=== PATIENT | female | born 1940 | race Caucasian/White ===

== ENCOUNTER 2016-09-21 18:30 | Inpatient (IN) | payer OTHER, MEDICARE ==
[~2016-09-21] VITALS: Ht 167.6 cm; Wt 82.6 kg
--- NOTE | ~2016-09-21 | EKG ---
[address] [employer] [place] [address] ELECTROCARDIOGRAM REPORT Name: JAKE KENNEDYQUEENIE Baker Room #: 460-P ADM IN M.R.#: [id number] Admission: 09/21/16 Attend Phys: Gillian Sherman MD Discharge: Date of : 36 Report #: [id number] THIS REPORT FOR: //name// [facility] ED Test Date: 2016-09-21 Test Time: 18:39:04 Pat Name: KETTY KENNEDY Department: Room: [facility] Gender: F Dynamic Etching Processor: MZOOK : 1940 Requested By: Yves Buchanan Order Number: [id number] MD: Nayan Tapia Measurements Intervals [place] Rate: 67 P: 83 MT: 219 QRS: 46 QRSD: 94 T: 60 QT: 412 QTc: 435 Interpretive Statements Sinus rhythm Atrial premature complexes Borderline prolonged MT interval Minimal ST depression, anterolateral leads Compared to ECG 07/23/2016 13:53:13 Atrial premature complex(es) now present Electronically Signed On 09-22-2016 7:41:29 CDT by Nayan Tapia [email or web address] <ELECTRONICALLY SIGNED> By: Nayan Tapia MD, [facility] 09/22/16 0741 1839 1839 Nayan Tapia MD, [facility] /EPI
--- NOTE | ~2016-09-21 | H ---
[facility] [place] [address] HISTORY AND PHYSICAL Name: KENNEDYJAKEQUEENIE Baker Room #: 460-P [facility] IN ..#: [id number] Admission: 09/21/16 Attend Phys: Gillian Sherman MD Discharge: 09/22/16 Date of : 38 Report #: [id number] THIS REPORT FOR: //name// CC: DIANA Malloy ATTENDING PHYSICIAN: Dr. Malloy. PRIMARY CARE PHYSICIAN: Dr. Diana Bradshaw. CHIEF COMPLAINT: Near syncope. HISTORY OF PRESENT ILLNESS: The patient is a 76-year-old female who has been dealing with chronic left foot diabetic ulcer for many years. She says she was just at her finishing room operator office earlier in the day and had the foot wound debrided and she was prescribed Augmentin. She took one dose at home and then shortly thereafter felt suddenly nauseous. She was on her way to the bathroom and thought she was going to vomit when she suddenly got lightheaded and sweaty and thought she is going to pass out she leaned against the wall and was swayed down the wall onto the floor, but did not actually pass out. She did not hit her head or have any, cause any injury. She later on did have one loose stool, but she did not have any prior diarrhea. She was not having any diarrhea prior to that. She had recently been on antibiotics for pneumonia and had just finished ZPAK last week. As far her ulcer she was seeing Dr. Telles, her finishing room operator, was getting an outpatient evaluation done for this wound, she was supposed to be having an MRI of the foot as well as arterial Dopplers this week. She has not been having any fevers or chills. In the ER, she started having vomiting and wanted to have her gallbladder evaluated. She is now resting more comfortably. 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 PAST SURGICAL HISTORY: Tonsillectomy and hysterectomy. ALLERGIES: CAPTOPRIL, HYDROCHLOROTHIAZIDE, LEVAQUIN AND SHELLFISH. HOME MEDICATIONS: Simvastatin 20 mg at bedtime, Aggrenox 20/200 one tab b.i.d., amlodipine 2.5 mg daily, spironolactone 25 mg b.i.d., aspirin 81 mg daily, Neurontin 300 mg t.i.d., potassium 20 mEq at bedtime, benzonatate 200 mg t.i.d. p.r.n., metformin 500 mg b.i.d., 70/30 insulin 12 units b.i.d., levothyroxine 0.05 mg daily, Myrbetriq 50 mg daily, vitamin C 500 mg daily, Ocuvite daily, multivitamin daily, Combivent inhaler p.r.n. SOCIAL HISTORY: The patient has been smoking on and off since the age of 48. She currently smokes about 3-4 cigarettes per day. She denies any alcohol use. She normally ambulates with a walker. She is a . She currently lives with her daughter, son-in-law and granddaughter and great granddaughter. [address] [address] HISTORY AND PHYSICAL Name: KETTY KENNEDY Room #: 460-P [facility] IN M.R.#: [id number] Admission: 09/21/16 Attend Phys: Gillian Sherman MD Discharge: 09/22/16 Date of : 38 Report #: [id number] FAMILY HISTORY: Noncontributory. REVIEW OF SYSTEMS: Twelve point review of systems as reviewed with the patient, otherwise negative unless stated in the HPI. PHYSICAL EXAMINATION: GENERAL: The patient is an alert female in no acute distress. VITAL SIGNS: Temperature is 36.4, heart rate 77, respirations 18, blood pressure is 173/78, oxygen is 97% on room air. HEENT: PERRLA. Sclerae are nonicteric. Oral mucosa is pink and moist. NECK: Supple, no JVD noted. CARDIOVASCULAR: Normal S1, S2. No murmurs, rubs or gallops. RESPIRATORY: Breath sounds are clear bilaterally. No wheezing or rhonchi. Breathing is nonlabored. ABDOMEN: Soft, round, nontender, nondistended with positive bowel sounds. VASCULAR: She does not have any lower extremity edema. Pedal pulses are 2+ on the right and 1+ on the left. No calf tenderness. NEUROLOGIC: The patient is alert and oriented x 3. Speech is clear. She is answering questions appropriately and following commands. No focal neuro deficits noted other than decreased sensation in bilateral lower extremities, which is chronic for her. SKIN: She does have a wound on the plantar side of her left foot just at the base of great toe. There is a small wound that is currently packed and has wick. The wick was not removed. There s no purulent drainage from this. There is no fluctuance. There is no surrounding erythema or tenderness as she does have neuropathy. LABORATORY DATA AND DIAGNOSTICS: WBC is 9.3, hemoglobin 15.4, platelets 127. Sodium 131, potassium 3.9, BUN 12, creatinine 0.9, glucose 122. LFTs are within normal limits. Magnesium is 1.4. Troponins negative. Lactate is 1.4. Lipase is 153, ultrasound of the abdomen showed no gallstones or evidence for biliary obstruction seen and foot x-ray showed no fracture and no osteomyelitis and EKG showing sinus rhythm with some PACs. ASSESSMENT AND PLAN: 1. Near syncope. This is likely a vasovagal episode as she was having nausea and subsequently vomited, we will continue to monitor on telemetry for any arrhythmias and check orthostatics. 2. Nonhealing left diabetic foot wound. The patient is requesting her previously recommended workup that supposed to be done as outpatient be done while she is here. We will go ahead and order the foot MRI to rule out osteomyelitis and if there is osteomyelitis we will consult podiatry, although I do not think that her finishing room operator actually comes here, we will also check an arterial Dopplers as she does have decreased pulse in the left side. We will continue with [place] [id number] HISTORY AND PHYSICAL Name: KETTY KENNEDY Room #: 460-P [facility].#: [id number] Admission: 09/21/16 Attend Phys: Gillian Sherman MD Discharge: 09/22/16 Date of : 38 Report #: [id number] vancomycin. 3. Diabetes type 2. Blood sugar is stable. Resume 70/30 insulin as at home and add sliding scale insulin. Check blood sugars a.c. and at bedtime. 4. History of cerebrovascular accident. Continue with Aggrenox. 5. Hypomagnesemia. This has been replaced. Follow labs. 6. Deep venous thrombosis prophylaxis, place sequential compression devices. We will continue to follow the patient closely throughout the hospitalization and make changes based on clinical status. <ELECTRONICALLY SIGNED> By: PEPE Catherine 09/25/16 0638 0527 0608 PEPE Catherine /nt
[2016-09-21 18:30] VITALS: BP 173/78
[~2016-09-21 18:30] MED LIST: AGGRENOX 25 MG1 EACH PO; ANTIVERT25 MG PO; ASPIRIN EC325 M1 PO; ASPIRIN EC81 M1 PO; ASPIRIN325 PO; B-122500 MCG PO; CALCIUM; CALCIUM 600 +1 EAC1 PO; CLOPIDOGREL75 MG PO; COMBIVENT INH; ELEMENTAL CALC600 MG PO; GLUCOPHAGE500 MG PO; HUMULIN 70100 UNIT/2 SUBQ; K-DUR 20 MEQ T20 MEQ PO; LEVOTHROID50 MCG PO; LISINOPRIL5 MG PO; MULTIVITAMINS PO; NEURONTIN 300M300 M2 PO; NORVASC 5 MG TAB5 MG PO; OCUVITE TABLET1 EAC1 PO; SPIRONOLACTONE25 M1 PO; SYNTHROID50 MCG PO; TESSALON PERLE100 MG PO; VITAMIN B-12 PO; VITAMIN E400 UNIT PO; VITAMIN E600 UNIT PO; VITAMINC500 PO; VITAMINE B-1100 MG PO; ZANAFLEX4 MG PO; ZOCOR 20 MG TAB20 M1 PO
[2016-09-21 19:58] LABS: HEMATOCRIT 44.2 % (37.0-47.0); HEMOGLOBIN 15.4 gm/dL (12.0-15.0); MCH 32.7 pg (26.0-34.0); MCHC 34.9 g/dL (28.0-37.0); MCV 93.7 fL (80.0-100.0); PLATELET COUNT 127 thou/uL (150-400); RBC 4.72 mil/uL (4.20-5.00); RDW 13.3 % (10.5-14.5); WBC 9.3 thou/uL (4.0-11.0)
[2016-09-21 19:59] LABS: MANUAL DIFF YES
[2016-09-21 20:19] LABS: ANION GAP 10 mmol/L (7-16); BUN 12 mg/dL (7-18); CALCIUM 9.5 mg/dL (8.5-10.1); CHLORIDE 96 mmol/L (98-107); CO2 25 mmol/L (21-32); CREATININE 0.9 mg/dL (0.6-1.0); GLUCOSE 122 mg/dL (74-106); POTASSIUM 3.9 mmol/L (3.5-5.1); SODIUM 131 mmol/L (136-145)
[2016-09-21 20:21] LABS: TOTAL CELL COUNT 100
[2016-09-21 20:22] LABS: ABSOLUTE NEUTROPHILS 8.4 thou/uL (1.4-8.2)
[2016-09-21 20:26] LABS: ALBUMIN 3.6 g/dL (3.4-5.0); ALKALINE PHOSPHATASE 90 U/L (46-116); MAGNESIUM 1.4 mg/dL (1.8-2.4); SGOT 16 U/L (15-37); SGPT 16 U/L (30-65); TOTAL BILIRUBIN 0.9 mg/dL (<0.1-1.0); TOTAL PROTEIN 7.7 g/dL (6.4-8.2); TROPONIN-I < 0.04 ng/mL (<0.04-0.07)
[2016-09-21] MEDS ORDERED: NORVASC2.5 MG PO (20:35)
[2016-09-21] MEDS ORDERED: OCUVITE TABLET1 EAC1 PO (20:36)
[2016-09-21] MEDS ORDERED: MYRBETRIQ50 MG PO (20:37)
[2016-09-21] MEDS ORDERED: MYRBETRIQ25 MG PO (20:37)
[2016-09-21 22:59] VITALS: BP 166/58
[2016-09-22 08:00] VITALS: BP 141/57
[2016-09-22 15:05] VITALS: BP 141/57
== END 2016-09-22 16:00 | disposition home or self-care (01) | DRG 312 ==
LOC: ER 18:30 → 4W 21:27 → EROBS 21:27 → 4W 23:00
PROVIDERS: Emergency Medicine
DX: R55 Syncope and collapse (principal); L03.116 Cellulitis of left lower limb; E87.1 Hypo-osmolality and hyponatremia; E11.621 Type 2 diabetes mellitus with foot ulcer; L97.529 Non-pressure chronic ulcer of other part of left foot with unspecified severity; E83.42 Hypomagnesemia; E11.40 Type 2 diabetes mellitus with diabetic neuropathy, unspecified; Z86.73 Personal history of transient ischemic attack (TIA), and cerebral infarction without residual deficits; Z90.710 Acquired absence of both cervix and uterus; Z90.49 Acquired absence of other specified parts of digestive tract; Z88.8 Allergy status to other drugs, medicaments and biological substances; Z88.1 Allergy status to other antibiotic agents; Z91.013 Allergy to seafood; Z87.891 Personal history of nicotine dependence; Z79.4 Long term (current) use of insulin
CPT/HCPCS: 10040

== ENCOUNTER 2018-06-05 11:31 | Inpatient (IN) | payer OTHER, MEDICARE ==
[~2018-06-05] VITALS: Ht 167.6 cm; Wt 67.1 kg
[2018-06-05] VITALS (14 sets, daily range): BP systolic 115–141; BP diastolic 31–48
[~2018-06-05 11:31] MED LIST changes: +MYRBETRIQ25 MG PO; +MYRBETRIQ50 MG PO; +NORVASC2.5 MG PO
[2018-06-05 13:17] LABS: ABSOLUTE NEUTROPHILS 10.5 thou/uL (1.4-8.2); BASOPHILS 0.3 % (0.0-2.0); EOSINOPHILS 0.2 % (0.0-3.0); HEMATOCRIT 23.5 % (37.0-47.0); HEMOGLOBIN 8.1 gm/dL (12.0-15.0); LYMPHOCYTES 9.4 % (24.0-44.0); MCH 33.3 pg (26.0-34.0); MCHC 34.5 g/dL (28.0-37.0); MCV 96.4 fL (80.0-100.0); MONOCYTES 5.3 % (1.0-8.0); PLATELET COUNT 188 thou/uL (150-400); POLYS 84.8 % (36.0-66.0); RBC 2.44 mil/uL (4.20-5.00); RDW 12.6 % (10.5-14.5); WBC 12.4 thou/uL (4.0-11.0)
[2018-06-05 13:23] LABS: ANION GAP 5 mmol/L (7-16); BUN 50 mg/dL (7-18); CALCIUM 9.2 mg/dL (8.5-10.1); CHLORIDE 96 mmol/L (98-107); CO2 28 mmol/L (21-32); CREATININE 0.9 mg/dL (0.6-1.0); GLUCOSE 112 mg/dL (74-106); POTASSIUM 4.7 mmol/L (3.5-5.1); SODIUM 129 mmol/L (136-145)
[2018-06-05 13:31] LABS: TROPONIN-I <0.06 ng/mL (<0.06)
--- NOTE | 2018-06-05 20:37 | NUR ---
ASSUMED CARE OF PT AT 1500 THIS SHIFT. PT ARRIVED FROM ED AND HAD SEIZURE ON ARRIVAL. PT HAD ANOTHER SEIZURE AROUND 1630, WITH RIGIDITY IN ALL FOUR EXTREMITIES - LET LUIS EDUARDO SUN AND NEURO CONSULT ORDERED. PT HAD VOMITED 700CC OF BLOOD AT 1800 - LET HARRIETT STOVALL AND EDG ORDERED. PT IS TO REMAIN NPO. PT'S HX FROM ED STATES THAT PT HAD A FALL ON WEDNESDAY DUE TO DIZZINESS AND PT HIT HEAD ON CABINET. PT RECIEVED 1 UNIT OF BLOOD THIS SHIFT, REDRAW IN 1 HR AFTER COMPLETION PER DR MARVIN. PT HAS HAD FAMILY VISIT, EDUCATION WAS PROVIDED. PLAN OF CARE IS TO MONITOR CLOSELY AND WAIT FOR FURTHER ORDERS FROM NEUROLOGY.
[2018-06-05 20:46] LABS: HEMATOCRIT 21.4 % (37.0-47.0); HEMOGLOBIN 7.4 gm/dL (12.0-15.0)
[2018-06-05] MEDS ORDERED: OCUVITE TABLET1 EAC1 PO (22:13)
--- NOTE | 2018-06-05 23:40 | NUR ---
ASSUMED CARE OF PT AT 1900. NEURO INTACT; PT A&O, STRENGTH EQUAL BILAT, PUPILS EQUAL AND REACTIVE. STAT HEAD CT DONE DUE TO NEW ONSET OF SEIZURES AND RECENT FALL. HEAD CT NEGATIVE FOR SUBDURAL HEMATOMA. UNIT OF BLOOD FINISHED AROUND 1900, HGB 7.4 WHEN RECHECKED AN HOUR LATER. NO ACTIVE BLEEDING FROM BEGINNING OF SHIFT. CONSENT SIGNED FOR EGD TOMORROW. PT NPO. NO SEIZURE ACTIVITY-SEIZURE PRECAUTIONS IN PLACE. DBP LOW, BUT HAS BEEN LOW SINCE ADMISSION. DEBT RECOVERY OFFICER CALLED DUE TO HYPONATREMIA ON ADMISSION AND 1/2NS FLUIDS ORDERED, AND FLUIDS MIGHT REQUIRE ADJUSTMENT FROM HYPOTONIC FLUIDS; DEBT RECOVERY OFFICER SAID TO KEEP FLUIDS ORDERED. WILL CONTINUE TO MONITOR.
[2018-06-06] VITALS (51 sets, daily range): BP systolic 122–184; BP diastolic 35–69
[2018-06-06 04:14] LABS: CALCIUM 8.4 mg/dL (8.5-10.1); CREATININE 0.9 mg/dL (0.6-1.0); POTASSIUM 4.2 mmol/L (3.5-5.1)
[2018-06-06 04:26] LABS: HEMOGLOBIN 6.9 gm/dL (12.0-15.0); RBC 2.08 mil/uL (4.20-5.00); RDW 13.1 % (10.5-14.5)
[2018-06-06 04:28] LABS: MCH 33.3 pg (26.0-34.0); MCHC 35.1 g/dL (28.0-37.0); MCV 94.9 fL (80.0-100.0)
[2018-06-06 04:31] LABS: HEMATOCRIT 19.7 % (37.0-47.0)
--- NOTE | 2018-06-06 06:35 | NUR ---
NO SEIZURE ACTIVITY OVER NIGHT. NEURO INTACT. NO ACTIVE BLEEDING OVER NIGHT. HGB 6.9 THIS AM, BIOTECHNICIAN CALLED WITH CRITICAL HCT, ORDERS RECEIVED TO TRANSFUSE ONE UNIT PRBC. BLOOD CURRENTLY TRANSFUSING, NO REACTION IDENTIFIED. PT IS TO HAVE EGD TODAY, CONSENT SIGNED. WILL CONTINUE TO MONITOR.
[2018-06-06 09:18] LABS: TSH 1.677 uIU/mL (0.358-3.740)
[2018-06-06 09:27] LABS: HEMATOCRIT 27.4 % (37.0-47.0)
[2018-06-06 09:28] LABS: HEMOGLOBIN 9.6 gm/dL (12.0-15.0)
--- NOTE | 2018-06-06 11:17 | EKG ---
[address] [address] ELECTROCARDIOGRAM REPORT Name: KETTY KENNEDY Room #: 242-P ADM IN M.R.#: [id number] Admission: 06/05/18 Attend Phys: Gonzales Felder MD Discharge: Date of : 38 Report #: [id number] THIS REPORT FOR: //name// [facility] ED Test Date: 2018-06-05 Test Time: 11:53:28 Pat Name: KETTY KENNEDY Department: Room: 242 Gender: F Upstairs Maid: ULICES : 1940 Requested By: Lynnette Morillo Order Number: [id number] MD: Robles Davalos Measurements Intervals [place] Rate: 78 P: 69 NM: 200 QRS: 39 QRSD: 88 T: 60 QT: 382 QTc: 436 Interpretive Statements Sinus rhythm Compared to ECG 09/21/2016 18:39:04 Atrial premature complex(es) no longer present ST (T wave) deviation no longer present Electronically Signed On 06-06-2018 11:17:40 GROUND TRANSPORTATION OPERATOR by Robles Davalos [email or web address] <ELECTRONICALLY SIGNED> By: Robles Davalos MD 06/06/18 1117 1153 1153 Robles Davalos MD /EPI
--- NOTE | 2018-06-06 11:51 | NUR ---
Patient admits with seizure, weakness. Patient resides with dtr she is currently in procedure MRI. Sp with family in waiting room. 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 She is active and goes weekly with friends to lunch and garage sales. [employer] following for dc planning.
--- NOTE | 2018-06-06 16:41 | NUR ---
PT IS ALERT AND ORIENTED X4. EEG AND MRI DONE TODAYS. SINUS RHYTHM ON THE CARDIAC MONIKTOR. LUNGS ARE CLEAR. ON CLEAR LIQUIDS TOLERATING WELL. USES BEDPAN TO VOID. EXTERANAL VAGINA CATH USED ON PT. FAMILY AT BEDSIDE TODAY FOR ONGOING SUPPORT. TRANSFER ORDERS PLACED IN THE COMPUTER AWAITING A BED WILL CONTINUE TO ASSESS AND MONITOR PER NURSING. NO STOOLS NOTED TODAY.
--- NOTE | 2018-06-06 18:23 | NUR ---
REPORT CALLED TO 3 KIRBY FOR REPORT. PIA SAENZ TOOK REPORT. NO ISSUES OR CONCERNS WILL CONTINUE TO MONITOR AND ASSESS PER NURSING.
[2018-06-07] VITALS (8 sets, daily range): BP systolic 106–132; BP diastolic 43–60
[2018-06-07 04:50] LABS: CALCIUM 8.2 mg/dL (8.5-10.1); CREATININE 0.8 mg/dL (0.6-1.0); POTASSIUM 3.7 mmol/L (3.5-5.1)
[2018-06-07 04:54] LABS: ABSOLUTE NEUTROPHILS 7.6 thou/uL (1.4-8.2); BASOPHILS 0.3 % (0.0-2.0); EOSINOPHILS 1.1 % (0.0-3.0); HEMATOCRIT 21.7 % (37.0-47.0); HEMOGLOBIN 7.8 gm/dL (12.0-15.0); LYMPHOCYTES 11.7 % (24.0-44.0); MCH 33.4 pg (26.0-34.0); MCHC 35.8 g/dL (28.0-37.0); MCV 93.3 fL (80.0-100.0); MONOCYTES 5.8 % (1.0-8.0); PLATELET COUNT 124 thou/uL (150-400); POLYS 81.1 % (36.0-66.0); RBC 2.33 mil/uL (4.20-5.00); RDW 13.7 % (10.5-14.5); WBC 9.4 thou/uL (4.0-11.0)
[2018-06-07 12:46] LABS: HEMATOCRIT 24.6 % (37.0-47.0); HEMOGLOBIN 8.4 gm/dL (12.0-15.0)
--- NOTE | 2018-06-07 14:18 | NUR ---
ASSUMED PATIENT CARE AT 0715. A&OX4. PATIENT STATES THEY ARE FEELING FOGGY. EGD YESTERDAY. NO SIGNS OF BLEEDING TODAY. SEE LABS. TOLERATING FULL LIQUID DIET. ORTHOSTATICS DONE TODAY, SEE CHARTING. UP TO CHAIR. OT AND PT EVAL ORDERED. ABLE TO MAKE NEEDS KNOWN. WORKING TOWARDS DISCHARGE GOALS.
[2018-06-07 20:09] LABS: HEMATOCRIT 23.5 % (37.0-47.0); HEMOGLOBIN 8.3 gm/dL (12.0-15.0)
[2018-06-08] VITALS (7 sets, daily range): BP systolic 123–166; BP diastolic 5–62
[2018-06-08 04:16] LABS: CALCIUM 8.5 mg/dL (8.5-10.1); CREATININE 0.8 mg/dL (0.6-1.0); POTASSIUM 3.5 mmol/L (3.5-5.1)
[2018-06-08 05:04] LABS: BASOPHILS 0.2 % (0.0-2.0); HEMATOCRIT 21.3 % (37.0-47.0); HEMOGLOBIN 7.5 gm/dL (12.0-15.0); LYMPHOCYTES 10.4 % (24.0-44.0); MCH 33.4 pg (26.0-34.0); MCHC 35.3 g/dL (28.0-37.0); MCV 94.7 fL (80.0-100.0); MONOCYTES 7.2 % (1.0-8.0); PLATELET COUNT 121 thou/uL (150-400); POLYS 80.2 % (36.0-66.0); RBC 2.25 mil/uL (4.20-5.00); RDW 13.8 % (10.5-14.5); WBC 8.7 thou/uL (4.0-11.0)
[2018-06-08 12:32] LABS: HEMATOCRIT 24.1 % (37.0-47.0); HEMOGLOBIN 8.3 gm/dL (12.0-15.0)
--- NOTE | 2018-06-08 14:09 | NUR ---
ANI reviewed chart and spoke with nursing and attending physician. Pt was transferred to [facility] from ICU and is progressing towards goals for discharge. Recommendation made for pt to have HH services. Pt's hemoglobin being checked every 12 hours. ANI met with pt and family at bedside to discuss discharge recommendations. Pt states she has used [facility] in the past for HH and would like to use them again. SW confirmed pt's home address and phone number. Pt's PCP is Dr. Kaden Orta. ANI notified intake at [facility] of new referral. ANI is following to assist as needed with discharge planning.
--- NOTE | 2018-06-08 19:42 | NUR ---
PT WAS A FALL RISK THIS MORN BUT WHEN DR DAWN ROUNDED SHE PLEADED TO NOT BE A FALL RISK..FALL PREC DC'D PER DR DAWN BUT MATA PT CAME BY AND NOTED THE PATIENT HAS INNER EAR PROBLEMS AND SHE ALMOST FELL IN HALLWAY..WE REINSTATED THE HIGH FALL PROTOCAL...
[2018-06-09 00:39] LABS: HEMATOCRIT 21.5 % (37.0-47.0); HEMOGLOBIN 7.6 gm/dL (12.0-15.0)
--- NOTE | 2018-06-09 04:21 | NUR ---
PT ALERT/ORIENTED X4, AMBULATED AROUND THE UNIT WITH ASSIST, GAIT STEADY BUT WEAK, ON ROOM AIR, DENIES PAIN, PT COMPLAINING DISCOMFORT FROM COUGH, ROBIUSSIN EVERY 4 HOURS, ENC. TO INCREASE PO ORAL FLUID, VOIDING WITH NO ISSUES NOTED, NO BM PASSED YET, SON HERE EARLIER AND AWARE OF THE EGD RESULT, PT STILL ON H/H EVERY 12 HOURS, MIDNIGHT HGB IS 7.6, PT IS AWARE, CONTINUE ON PROTONIX DRIP TO HER NEW IV ACCESS TO LEFT WRIST, DENIES PAIN, BED ALARM ON, USING CALL LIGHT APPROPRIATELY, MONITORED.
[2018-06-09 05:16] VITALS: BP 143/58
[2018-06-09 08:20] VITALS: BP 170/69
[2018-06-09] MEDS ORDERED: COZAAR 25 MG TA25 M1 PO (11:35)
[2018-06-09] MEDS ORDERED: PROTONIX40 M1 PO (11:35)
[2018-06-09 11:51] VITALS: BP 142/56
--- NOTE | 2018-06-09 14:07 | NUR ---
ASSUMED PATIENT CARE AT 0715. A&OX4. FORGETFUL. PROTONIX GTT DC'D. UP WITH ASSIST OF ONE. PATIENT IS UNSTEADY AND NEEDS ASSISTANCE. PATIENT STATES THEY HAVE A WALKER AT HOME BUT DO NOT TYPICALLY USE IT. PT AND OT ORDERED IN THE HOSPITAL. GRANDDAUGHTER LIVES WITH PATIENT SO THEY ARE NOT WANTING TO DISCHARGE WITH HOME HEALTH. FAMILY AT BEDSIDE. REACHING GOALS FOR DISCHARGE.
--- NOTE | 2018-06-09 14:42 | NUR ---
SW reviewed chart and spoke with attending physician. Pt is progressing towards goals for discharge. Discharge home is anticipated for tomorrow. Pt and dtrs are declining HH at this time. SW updated intake at [facility]. SW is following to assist as needed with discharge planning.
[2018-06-09 16:37] VITALS: BP 145/54
[2018-06-09 20:00] VITALS: BP 149/55
[2018-06-10 04:43] LABS: HEMATOCRIT 21.4 % (37.0-47.0); HEMOGLOBIN 7.3 gm/dL (12.0-15.0)
[2018-06-10 05:15] VITALS: BP 130/54
--- NOTE | 2018-06-10 05:59 | NUR ---
Pt. has slept fair during the night. No bleeding noted. Up with assist to bathroom. Denies any concern at this time. Progressing towards discharge goals.
[2018-06-10 08:12] VITALS: BP 165/66
--- NOTE | 2018-06-10 10:26 | NUR ---
SW reviewed chart and spoke with nursing. Pt is not medically stable for discharge today. Hemoglobin was 7.3 today. GI following. Plan is for pt to discharge home when medically stable. Should pt be agreeable with services, [facility] is able to provided home health. Final discharge orders/summary will need to be faxed to [facility] when available. ANI is following to assist as needed with discharge planning. [facility]--
[2018-06-10 11:41] VITALS: BP 139/52
[2018-06-10 13:51] LABS: HEMATOCRIT 22.8 % (37.0-47.0)
--- NOTE | 2018-06-10 15:35 | NUR ---
ASSUMED PATIENT CARE AT 0715. A&OX4. NONCOMPLIANT WITH FALL RISK RULES. PATIENT CONSTANTLY GETTING UP WITHOUT HELP. OK'D PATIENT TO GET UP WITH FAMILY TO BATHROOM. PATIENT HAD A BLACK STOOL IN THE MORNING. PLAN IS TO DO ANOTHER EGD TOMORROW. CONSENT SIGNED ON THE CHART. CLEAR LIQUID DIET AND NPO AFTER MIDNIGHT. FAMILY DISCUSSED PLAN WITH GI NEON GLASS BLOWER AND DOCTOR. FAMILY AT BEDSIDE MOST OF THE DAY. VERY SLOWLY WORKING TOWARDS GOALS.
[2018-06-10 17:06] VITALS: BP 148/61
[2018-06-10 19:59] VITALS: BP 155/60
[2018-06-11 00:26] VITALS: BP 138/55
--- NOTE | 2018-06-11 03:04 | NUR ---
ASSUMED PT CARE 1899. ALERT AND ORIENTED. ASSESSMENT COMPLETE. VSS. PT DENIES PAIN. PT HAS CONGESTED COUGH. NPO AT MIDNIGHT. FALL RISK PRECAUTINS IMPLEMENTED. IV DRESSING C/D/I, NO SIGNS OF INFILTRATION. SEIZURE PRECAUTIONS IMPLEMENTED. PT EXPRESSING CONCERNS ABOUT BLOOD SUGAR LEVELS GETTING TOO LOW. PT CALL LIGHT AND PERSONAL BELONGINGS WITHIN REACH. WILL CONTINUE POC UNTIL EOS.
[2018-06-11 04:23] LABS: HEMATOCRIT 22.6 % (37.0-47.0)
[2018-06-11 05:22] VITALS: BP 146/61
[2018-06-11 08:08] VITALS: BP 164/69
[2018-06-11 10:35] LABS: HEMOGLOBIN 8.2 gm/dL (12.0-15.0)
[2018-06-11 11:08] LABS: CALCIUM 9.1 mg/dL (8.5-10.1); CREATININE 0.8 mg/dL (0.6-1.0); MAGNESIUM 1.5 mg/dL (1.8-2.4); POTASSIUM 4.1 mmol/L (3.5-5.1)
[2018-06-11 12:04] VITALS: BP 183/64
--- NOTE | 2018-06-11 13:58 | EKG ---
[address] [address] ELECTROCARDIOGRAM REPORT Name: JAKE KENNEDYQUEENIE Baker Room #: 364-P ADM IN M.R.#: [id number] Admission: 06/05/18 Attend Phys: Gonzales Felder MD Discharge: Date of : 38 Report #: [id number] THIS REPORT FOR: //name// [facility] Test Date: 2018-06-11 Test Time: 10:12:07 Pat Name: KETTY KENNEDY Department: Room: 364 P Gender: F Food Critic: FREEMAN : 1940 Requested By: Paul Malloy Order Number: [id number] MD: Nayan Tapia Measurements Intervals [place] Rate: 61 P: 79 NC: 214 QRS: 39 QRSD: 92 T: 49 QT: 391 QTc: 394 Interpretive Statements Sinus rhythm Borderline prolonged NC interval Compared to ECG 06/05/2018 11:53:28 No significant changes Electronically Signed On 06-11-2018 13:58:23 FREIGHT RATE CLERK by Nayan Tapia [email or web address] <ELECTRONICALLY SIGNED> By: Nayan Tapia MD, [facility]GED WITH [facility] 06/11/18 1358 1012 1012 Nayan Tapia MD, [facility] /EPI
[2018-06-11 16:49] VITALS: BP 140/54
--- NOTE | 2018-06-11 18:52 | NUR ---
ASSUMED CARE OF PATIENT AT 0700. PER PATIENT, SHE HAD AN EPISODE OF NEAR SYNCOPE WHILE AMBULATING TO THE BR. EGD PUT ON HOLD FOR ONE DAY DUE TO THIS. PATIENT WAS ABLE TO RESUME SOFT/FIBER RESTRICT DIET. PATIENT FELT MUCH BETTER AFTER EATING AND APPEARED TO HAVE MORE STRENGTH. SHE DECLINED ANY FURTHER EPISODES OF NEAR SYNCOPE OR PAIN. PATIENT HAS MULTIPLE FAMILY MEMBERS AT THE BEDSIDE AND ALL OF THEIR QUESTIONS WERE ANSWERED. ASSESSMENTS DOCUMENTED. PATIENT AMBULATING WITH WALKER AND ONE ASSIST AND CALLING OUT APPROPRIATELY. PATIENT TO GO NPO AT MIDNIGHT FOR EGD TOMORROW. WILL CONTINUE TO MONITOR AND FOLLOW POC.
[2018-06-11 20:17] VITALS: BP 136/62
--- NOTE | 2018-06-12 03:36 | NUR ---
ASSUMED PT CARE AROUND 1900. A&OX4. DENIES ANY PAIN OR SOA. UP W/ ASSIST AND WALKER TO BTR. PT SAT UP IN CHAIR ALL NIGHT. SHE STATED SHE PREFERED TO SLEEP IN THE CHAIR TONIGHT. RESP EVEN AND UNLABORED. NO S/S BLEEDING NOTED. PT HAD BOWEL MOVEMENT THIS SHIFT, BUT IT WAS DARK GREEN/BROWN IN COLOR. FALL PRECAUTIONS IN PLACE. PROGRESSING TOWARD POC GOALS. WILL CONTINUE TO MONITOR FURTHER.
[2018-06-12 04:57] VITALS: BP 185/80
[2018-06-12 05:03] VITALS: BP 153/62
[2018-06-12 05:40] LABS: HEMATOCRIT 24.4 % (37.0-47.0); HEMOGLOBIN 8.5 gm/dL (12.0-15.0); MCH 33.8 pg (26.0-34.0); MCV 96.6 fL (80.0-100.0); RBC 2.53 mil/uL (4.20-5.00); RDW 14.2 % (10.5-14.5); WBC 6.6 thou/uL (4.0-11.0)
[2018-06-12] MEDS ORDERED: PLAVIX 75 MG TA75 M1 PO (09:37)
[2018-06-12 09:43] VITALS: BP 153/62
--- NOTE | 2018-06-12 11:50 | NUR ---
ASSUMED PATIENT CARE AT 0715. A&OX4. NO COMPLAINTS OF PAIN. CLEARED FOR DC TODAY. DISCHARGE INSTRUCTIONS DISCUSSED WITH PATIENT AND FAMILY. MEDICATIONS DISCUSSED WITH PATIENT AND FAMILY. IV DC'D. PATIENT DISCHARGING HOME WITH DAUGHTER. NOT NEEDING HOME HEALTH. PATIENT HAS A WALKER AT HOME. GOALS MET FOR DC.
--- NOTE | 2018-06-16 09:41 | HC ---
[facility] [place] [address] CONSULTATION Name: KENNEDYJAKEQUEENIE Baker Room #: 364-P [facility] ..#: [id number] Admission: 06/05/18 Attend Phys: Gonzales Felder MD Discharge: 06/12/18 Date of : 38 Report #: [id number] THIS REPORT FOR: //name// CC: Gonzales Orta DATE OF SERVICE: 06/06/2018 HISTORY OF PRESENT ILLNESS: This is an 78-year-old female patient who was evaluated by me for seizure. I took the history from the daughter first because the patient was gone for EGD. I talked to the nurses at that time subsequently. I reviewed the patient's records in the computer, including the records in 2017. The daughter indicates that this patient had a seizure in 2017. Review the records indicate that she was nauseous and she tried to walk to the bathroom and she had an episode of syncope. Records also indicate that she had a CT angiogram of the head and neck by Dr. Godinez, who was a neurologist several years ago. She does not know why was at that time. She had two episodes of seizures yesterday and they look very typical tonic-clonic seizures. They had a well-defined postictal period. She was started on Keppra at that time and she feels back to her baseline. She is a diabetic, but the best I can tell, no hypoglycemia has been documented. She does have some hyponatremia, but the blood sodium has been 129 in 2017; it was also 127. She did have a CT scan of the head, which was unremarkable. REVIEW OF SYSTEMS: Indicate the patient is a diabetic. It looks like she has a gastric ulcer. She has been seen by GI and they did a scoping on her. She has been on multiple medications and those medications list was reviewed. She has anemia. She was on Aggrenox for her stroke. A 14-point review of system was carried out and this was her relevant 14-point review of system. She had a history of bronchitis. She feels back to her normal self and is not complaining of any new eye, ENT, cardiac, respiratory, musculoskeletal, constitutional, dermatological, hematological, psychiatric, throat or allergic symptom associated with present symptomatology. PAST MEDICAL HISTORY: Positive for foot problems. FAMILY HISTORY: Negative for any early age stroke. SOCIAL HISTORY: She lives with her daughter, but able to do daily activity by herself. She does not use alcohol. PHYSICAL EXAMINATION: NEUROLOGIC: The patient's examination indicates that she is alert, responsive, able to follow simple commands. She has come out of sedation just now, so exam is difficult, but cranial nerve examination appears noncontributory. She moves [address] [address] CONSULTATION Name: KETTY KENNEDY Room #: 364-P [facility] IN ..#: [id number] Admission: 06/05/18 Attend Phys: Gonzales Felder MD Discharge: 06/12/18 Date of : 38 Report #: [id number] both sides and neuromuscular exam is difficult. Fundus examination is not possible. She has no meningeal sign. She has no neck pain. CARDIAC EXAMINATION: Unremarkable. She does not appear to be in respiratory distress. VITAL SIGNS: Temperature is 98, blood pressure is 149/50. LABORATORY DATA: Her last hemoglobin was 9.6, which is improved from 6.9. CT scan of the head does not show any abnormalities. Prior MRIs have shown strokes. She does not have any . IMPRESSION: This patient appeared to have multiple seizures. Although her hemoglobin was low, I am not sure that can cause seizure. The one in 2017 may or may not be related to seizure. She had two strokes which predispose her to seizure. That makes it very difficult about the seizure medications and I discussed with the patient and the family the option of going on seizure medication or not on that. I talked to her and she is agreeable to leave her on Keppra for the time being. I will look at her workup and then re-evaluate the situation for her. RECOMMENDATIONS: 1. MRI of the brain. 2. MRA of the head and neck. 3. EEG. 4. Re-evaluate the situation after that. More than 50 minutes of time was spent taking care of this patient today and majority of that time was spent counseling the patient and the daughter and coordinating her care. Thank you very much for this referral. <ELECTRONICALLY SIGNED> By: Jarocho Shaikh MD 06/16/18 0941 0938 1013 Jarocho Shaikh MD /nt
--- NOTE | 2018-06-16 09:42 | EEG ---
[facility] [place] [address] ELECTROENCEPHALOGRAM Name: KETTY KENNEDY Room #: 364-P [facility] IN M.R.#: [id number] Admission: 06/05/18 Attend Phys: Gonzales Felder MD Discharge: 06/12/18 Date of : 36 Report #: [id number] THIS REPORT FOR: //name// CC: Gonzales Orta DATE OF SERVICE: 06/06/2018 This patient is being evaluated for the possibility of seizure. EEG was done by placing the electrode by standard 10-20 system of electrode placement. Both referential and sequential montages were used for recording. Background activity in this patient's EEG is about 10 Hz and 30 microvolts. The patient became drowsy and that was associated with bilateral slowing and vertex sharp waves. Photic stimulation was unremarkable. Throughout the record, no active epileptiform activity was noticed. IMPRESSION: This patient's EEG is unremarkable. Thank you very much for this referral. <ELECTRONICALLY SIGNED> By: Jarocho Shaikh MD 06/16/18 0942 1338 1404 Jarocho Shaikh MD /nt
== END 2018-06-12 11:53 | disposition home or self-care (01) | DRG 377 ==
LOC: ER 11:31 → ICU 13:48 → EROBS 13:48 → 3W 13:48 → ICU 14:54 → 3W 06-06 19:08
PROVIDERS: Emergency Medicine; Hospitalist; Internal Medicine; Internal Medicine Gastroenterology; Nurse Practitioner Family; Psychiatry & Neurology Neuromuscular Medicine; ADMIT Hospitalist
PROC: 30233N1 Transfusion of Nonautologous Red Blood Cells into Peripheral Vein, Percutaneous Approach (ICD-10-PCS; principal; 2018-06-05)
PROC: 0W3P8ZZ Control Bleeding in Gastrointestinal Tract, Via Natural or Artificial Opening Endoscopic (ICD-10-PCS; 2018-06-06)
DX: K25.4 Chronic or unspecified gastric ulcer with hemorrhage (principal); E43 Unspecified severe protein-calorie malnutrition; D62 Acute posthemorrhagic anemia; K29.81 Duodenitis with bleeding; K26.4 Chronic or unspecified duodenal ulcer with hemorrhage; E11.9 Type 2 diabetes mellitus without complications; I95.1 Orthostatic hypotension; E86.1 Hypovolemia; Z88.8 Allergy status to other drugs, medicaments and biological substances; Z79.899 Other long term (current) drug therapy; Z88.1 Allergy status to other antibiotic agents; Z90.710 Acquired absence of both cervix and uterus; Z86.73 Personal history of transient ischemic attack (TIA), and cerebral infarction without residual deficits; Z91.013 Allergy to seafood; Z79.01 Long term (current) use of anticoagulants; Z79.82 Long term (current) use of aspirin; R56.9 Unspecified convulsions
CPT/HCPCS: 10078; 10779; 10879; 62110; 62900

== ENCOUNTER → 2018-09-05 | Outpatient (CLI) | payer OTHER, MEDICARE ==
[~2018-09-05] VITALS: Ht 167.6 cm; Wt 62.1 kg
[~2018-09-05] MED LIST changes: +COZAAR 25 MG TA25 M1 PO; +COZAAR 25 MG TA25 M2 PO; +PLAVIX 75 MG TA75 M1 PO; +PROTONIX40 M1 PO
== END | disposition home or self-care (01) ==
LOC: GI 07:36
DX: K31.89 Other diseases of stomach and duodenum (principal); I10 Essential (primary) hypertension; E11.9 Type 2 diabetes mellitus without complications; E78.5 Hyperlipidemia, unspecified; E03.9 Hypothyroidism, unspecified; F17.210 Nicotine dependence, cigarettes, uncomplicated; Z98.890 Other specified postprocedural states; Z79.4 Long term (current) use of insulin; Z90.710 Acquired absence of both cervix and uterus; Z86.73 Personal history of transient ischemic attack (TIA), and cerebral infarction without residual deficits; Z85.828 Personal history of other malignant neoplasm of skin; Z88.8 Allergy status to other drugs, medicaments and biological substances
CPT/HCPCS: 62110; 62900